=== PATIENT | female | born 1945 | race Caucasian/White ===

== ENCOUNTER → 2016-12-08 | Outpatient (CLI) | payer OTHER | LOC: BMCIMAGING 10:18 | PROVIDERS: ATTEND Internal Medicine | DX: Z13.820 Encounter for screening for osteoporosis (principal); Z78.0 Asymptomatic menopausal state ==

== ENCOUNTER → 2017-09-08 | Outpatient (CLI) | payer OTHER | LOC: BMCIMAGING 09:21 | PROVIDERS: ATTEND Internal Medicine | DX: Z12.31 Encounter for screening mammogram for malignant neoplasm of breast (principal) | CPT/HCPCS: G0202 ==

== ENCOUNTER → 2018-09-22 | Outpatient (CLI) | payer OTHER | LOC: BMCIMAGING 12:05 | PROVIDERS: ATTEND Internal Medicine | DX: Z12.31 Encounter for screening mammogram for malignant neoplasm of breast (principal) ==

== ENCOUNTER → 2019-03-19 | Outpatient (CLI) | payer OTHER | LOC: BMCIMAGING 09:16 ==